=== PATIENT | male | born 1930 | race Caucasian/White ===

== ENCOUNTER 2019-11-13 13:50 | Observation (INO) ==
--- NOTE | 2019-11-13 14:57 | Pharmacy Consult Notes ---
[facility] VTE Monitoring - Patient Demographics Admission date: 11/13/19 Report Date: 11/13/19 Time: 14:57 Allergies/Adverse Reactions: Patient Allergies Penicillins Allergy (Verified 11/13/19 14:12) Unknown allergy reaction Height: 1.8 m Weight: 97.579 kg - VTE Risk Was VTE Risk Assessment Performed: Yes VTE Score: 6 VTE Risk Level: Moderate Risk - Prophylaxis VTE Prophylaxis Ordered?: Yes Types of VTE Prophylaxis: TEDS Knee High Location of Applied Device: Bilateral Lower Extremeties - VTE Diagnosis Confirmed Treatment or plan recommended: Continue Current Treatment
[2019-11-13 15:39] LABS: Basophils % 0.3 % (0.1-2.0); Eosinophils # 0.1 K/mm3 (0.0-0.4); Eosinophils % 0.7 % (0.1-12.0); Hematocrit 51.1 % (42.0-52.0); Hemoglobin 17.1 g/dL (14.1-18.0); Lymphocytes # 0.5 K/mm3 (0.7-4.5); Lymphocytes % 4.5 % (10-50); Mean Corpuscular HGB Conc 33.5 g/dL (31.8-35.4); Mean Corpuscular Volume 104.2 fl (80-94); Mean Platelet Volume 8.9 fl (7.4-10.4); Monocytes # 0.5 K/mm3 (0.1-1.0); Monocytes % 4.6 % (1.7-9.3); Neutrophils # 9.7 K/mm3 (1.8-7.8); Platelet Count 156 K/mm3 (142-424); Red Blood Count 4.91 M/mm3 (4.60-6.20); Red Cell Distribution Width 12.6 % (11.5-17.5); White Blood Count 10.8 K/mm3 (4.8-10.8)
[2019-11-13 15:55] LABS: Albumin Level 3.3 gm/dL (3.4-5.0); Calcium 8.3 mg/dL (8.5-10.1); Globulin 3.2 gm/dl (1.3-3.2); Total Protein,Serum 6.5 gm/dL (6.4-8.2)
--- NOTE | 2019-11-13 17:03 | History & Physical Report ---
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 Today he also endorsed subjective fevers at home. Patient had been seen in the office on November 07 and treated for COPD exacerbation with steroids and Omnicef. Patient has a penicillin allergy and developed increasing pain in the oropharynx which was believed to possibly be reaction to the Omnicef. Antibiotics were changed to doxycycline. He presented to the office today in mild respiratory distress with increased work of breathing and hypoxia. In the office O2 sat was 88% on room air while the patient was at rest. Pulse rate was between 100-110 bpm. Exam was abnormal with bibasilar rales and diffuse expiratory wheezes with poor air movement. Patient was admitted for treatment of his COPD exacerbation after failing outpatient treatment. [facility] History I have reviewed the patient's past medical history: Yes Medical History: Reports:: Chronic Obstructive Pulmonary Disease (COPD) Denies:: Cancer, Diabetes Mellitus Type 1, Diabetes Mellitus Type 2, MRSA *Have you ever received a pneumonia vaccine?: Yes *Have you received a flu vaccine this season?: Yes Comment:: Asbestosis Amputation: No Fractures: No - *Social History Educational Level: Attended Grade School Alcohol Intake: never *Occupational Status:: retired Housing: house Household Members: family *Travel in the last 8 weeks: None Family Hx:: Diabetes Review of Systems - Constitutional Reports fever(s), Denies anorexia, Denies body ache(s), Denies chills - *Cardiovascular Denies chest pain, Denies chest pain at rest, Denies chest pain with activity, Denies leg pain with activity, Denies excessive sweating - *Respiratory Reports chest congestion, Reports cough, Reports shortness of breath, Reports shortness of breath with activity, Reports wheezing - *Gastrointestinal Denies abdominal pain, Denies belching - *Genitourinary Denies difficulty urinating, Denies difficulty with ejaculations - *Musculoskeletal Denies abnormal walking, Denies joint pain Meds Allergies Allergy/AdvReac Type Severity Reaction Status Date / Time Penicillins Allergy Unknown Verified 11/13/19 14:12 allergy reaction Exam Vital signs and Labs for Last 24 Hours: Temp Pulse Resp BP Pulse Ox 99.5 F 82 26 H 148/64 H 94 L 11/13/19 14:07 11/13/19 14:07 11/13/19 14:54 11/13/19 14:07 11/13/19 14:54 Laboratory Results - last 24 hr 11/13/19 15:20: WBC 10.8, RBC 4.91, Hgb 17.1, Hct 51.1, MCV 104.2 H, MCH 34.9 H, MCHC 33.5, RDW 12.6, Plt Count 156, MPV 8.9, Neut % (Auto) 90.0 H, Lymph % (Auto) 4.5 L, Shelby % (Auto) 4.6, Eos % (Auto) 0.7, Baso % (Auto) 0.3, Neut # (Auto) 9.7 H, Lymph # (Auto) 0.5 L, Shelby # (Auto) 0.5, Eos # (Auto) 0.1, Baso # (Auto) 0.0 11/13/19 15:20: Sodium 134 L, Potassium 4.0, Chloride 100, Carbon Dioxide 25, Anion Gap 13.0, BUN 13, Creatinine 0.83, Estimated Creat Clear 72, Estimated GFR 88, Est GFR ( Amer) 106, Glucose 356 H, Calcium 8.3 L, Total Bilirubin 1.0, AST 8 L, ALT 28, Alkaline Phosphatase 84, Total Protein 6.5, Albumin 3.3 L, Globulin 3.2, Albumin/Globulin Ratio 1.0 L 11/13/19 15:20: B-Natriuretic Peptide 139 H 11/13/19 15:56: Lactate 0.9 I & O for Last 24 hours: Intake & Output 11/11/19 11/12/19 11/13/19 11/14/19 11:59 11:59 11:59 11:59 Weight 215 lb 2 oz Narrative: Patient appears more comfortable currently than in the office. Nasal cannula is in place. HEENT exam is grossly normal. Neck has no lymphadenopathy or carotid bruits. Lungs have poor air movement with diffuse expiratory wheezes and bibasilar crackles. Heart has a regular rate and rhythm. Abdomen is obese. Extremities are warm to the touch. Skin is without rashes. Neurologically the only deficit is vision loss. Assessment and Plan (1) COPD with exacerbation Current visit: Yes Status: Acute Category: Medical Code(s): J44.1 - Chronic obstructive pulmonary disease with (acute) exacerbation Patient requires hospitalization for management of symptoms. Continue duo nebs every 6 hours. PRN neb treatments will be ordered. Patient will start IV Levaquin as well as Solu-Medrol. Chest x-ray has been ordered. (2) Pneumonia Current visit: Yes Status: Suspected Category: Medical Code(s): J18.9 - Pneumonia, unspecified organism Chest x-ray to rule out pneumonia (3) Newly diagnosed diabetes Current visit: Yes Status: Acute Category: Medical Code(s): E11.9 - Type 2 diabetes mellitus without complications Patient will start medium intensity sliding scale (4) Blindness Current visit: Yes Status: Acute Category: Medical Code(s): H54.7 - Unspecified visual loss Up with assistance due to impaired vision in an unfamiliar environment (5) Pulmonary asbestosis Current visit: Yes Status: Acute Category: Medical Code(s): J61 - Pneumoconiosis due to asbestos and other mineral fibers
[2019-11-13 18:24] LABS: Anisocytosis 1+; Lymphocytes % 5 % (10-50); Macrocytosis 1+; Monocytes % 5 % (2-9); Neutrophils % 90 % (42-76); Total Cells Counted 100
--- NOTE | 2019-11-14 08:13 | Progress Note ---
Internal Medicine - PN: Subj *Date: 11/14/19 *Time: 08:11 Interval history: Patient feels significantly better this morning. Nursing has reported conversational dyspnea overnight but patient feels like this is his baseline. Exam Vital signs and Labs for Last 24 Hours: Temp Pulse Resp BP Pulse Ox 97.1 F L 50 L 22 144/69 H 93 L 11/14/19 04:00 11/14/19 06:00 11/14/19 04:00 11/14/19 04:00 11/14/19 06:00 Laboratory Results - last 24 hr 11/13/19 15:20: WBC 10.8, RBC 4.91, Hgb 17.1, Hct 51.1, MCV 104.2 H, MCH 34.9 H, MCHC 33.5, RDW 12.6, Plt Count 156, MPV 8.9, Neut % (Auto) 90.0 H, Lymph % (Auto) 4.5 L, Brule % (Auto) 4.6, Eos % (Auto) 0.7, Baso % (Auto) 0.3, Neut # (Auto) 9.7 H, Lymph # (Auto) 0.5 L, Brule # (Auto) 0.5, Eos # (Auto) 0.1, Baso # (Auto) 0.0, Total Counted 100, Neutrophils % (Manual) 90 H, Lymphocytes % (Manual) 5 L, Monocytes % (Manual) 5, Platelet Estimate Normal, Anisocytosis 1+, Macrocytosis 1+ 11/13/19 15:20: Sodium 134 L, Potassium 4.0, Chloride 100, Carbon Dioxide 25, Anion Gap 13.0, BUN 13, Creatinine 0.83, Estimated Creat Clear 72, Estimated GFR 88, Est GFR ( Amer) 106, Glucose 356 H, Calcium 8.3 L, Total Bilirubin 1.0, AST 8 L, ALT 28, Alkaline Phosphatase 84, Total Protein 6.5, Albumin 3.3 L, Globulin 3.2, Albumin/Globulin Ratio 1.0 L 11/13/19 15:20: Mycoplasma pneumon IgM Non-reactive 11/13/19 15:20: B-Natriuretic Peptide 139 H 11/13/19 15:56: Lactate 0.9 11/13/19 19:31: Influenza Type A Ag Negative, Influenza Type B Ag Negative 11/13/19 21:15: POC Glucose 351 H* 11/14/19 06:03: POC Glucose 256 H I & O for Last 24 hours: Intake & Output 11/11/19 11/12/19 11/13/19 11/14/19 11:59 11:59 11:59 11:59 Intake Total 50 / 50 Balance 50 / 50 Weight 205 lb 8 oz Microbiology Reports for the Last 24 Hours: Microbiology 11/13/19 21:30 Sputum - Expectorated Sputum Gram Stain - Final Narrative: Patient looks more comfortable and is sitting up on the side of the bed eating. He shows no signs of respiratory distress this morning. Lung exam remains distant with bibasilar crackles from his fibrotic disease. Wheezing is absent this morning heart has a regular rate and rhythm. Assessment and Plan (1) COPD with exacerbation Current visit: Yes Status: Acute Category: Medical Code(s): J44.1 - Chronic obstructive pulmonary disease with (acute) exacerbation (2) Pneumonia Current visit: Yes Status: Ruled-out Category: Medical Code(s): J18.9 - Pneumonia, unspecified organism (3) Newly diagnosed diabetes Current visit: Yes Status: Acute Category: Medical Code(s): E11.9 - Type 2 diabetes mellitus without complications (4) Blindness Current visit: Yes Status: Acute Category: Medical Code(s): H54.7 - Unspecified visual loss (5) Pulmonary asbestosis Current visit: Yes Status: Acute Category: Medical Code(s): 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 Continue duo nebs. Discontinue antibiotics. Monitor room air sats over the next 24 hours. Patient is possible discharge tomorrow
--- NOTE | 2019-11-15 08:25 | Discharge Summary ---
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 Today he also endorsed subjective fevers at home. Patient had been seen in the office on November 07 and treated for COPD exacerbation with steroids and Omnicef. Patient has a penicillin allergy and developed increasing pain in the oropharynx which was believed to possibly be reaction to the Omnicef. Antibiotics were changed to doxycycline. He presented to the office today in mild respiratory distress with increased work of breathing and hypoxia. In the office O2 sat was 88% on room air while the patient was at rest. Pulse rate was between 100-110 bpm. Exam was abnormal with bibasilar rales and diffuse expiratory wheezes with poor air movement. Patient was admitted for treatment of his COPD exacerbation after failing outpatient treatment. Hospital Course Hospital Course: Patient was admitted and placed on IV Solu-Medrol and IV Levaquin along with duo nebs 4 times a day. Chest x-ray was negative for pneumonia so Levaquin was discontinued on November 14. Patient had excellent response to steroids and aerosols. By the afternoon of November 14 he was weaned from oxygen and remained off supplemental oxygen overnight. On November 15 he was discharged home where he will continue a steroid taper along with aerosols 4 times a day. Patient was identified as having diabetes and will be started on a sulfonylurea. Patient will follow-up in 2 weeks Objective Vital signs: Temp Pulse Resp BP Pulse Ox 98.4 F 84 20 169/78 H 91 L 11/15/19 08:00 11/15/19 08:00 11/15/19 08:00 11/15/19 08:00 11/15/19 08:00 no acute distress - *Routine Respiratory Exam Comments: Distant but clear with basilar rales from fibrotic disease - *Routine Cardiovascular Exam Present: RRR, Normal S1, Normal S2 Results Labs on day of discharge: Labs from last 24 hours 11/15/19 11/14/19 11/14/19 05:51 21:06 17:06 POC Glucose 238 H 315 H* 422 H* 11/14/19 11:54 POC Glucose 350 H* Preliminary micro results at discharge 01/10/20 21:30 Sputum Culture - Preliminary Sputum - Expectorated Sputum DS: Diagnosis - Discharge Diagnosis (1) COPD with exacerbation Status: Acute (2) Pneumonia Status: Ruled-out (3) Newly diagnosed diabetes Status: Acute (4) Blindness Status: Acute (5) Pulmonary asbestosis Status: Acute Discharge Plan - Patient Discharge Instructions ACTIVITY: Continue current activity DIET: continue same diet - Follow up Plan Follow up with: Jose Bell MD [Primary Care Provider] - 2 weeks Disposition: Home, [facility] Medications: Home Medications Medication Instructions Recorded Confirmed Type Albuterol Sulfate [Albuterol HFA 2 puffs INHALATION Q4HP PRN 11/14/19 11/14/19 History Inhaler] Benzonatate 200 mg PO TIDP PRN 11/14/19 11/14/19 History Doxycycline Hyclate [Vibra-Tab 100 mg PO BID 11/14/19 11/14/19 History 100mg tablet] Fluticasone/Salmeterol [Advair 1 inh IH BID 11/14/19 11/14/19 History 250/50mcg Diskus] predniSONE [Deltasone 20mg 20 mg PO BID 11/14/19 11/14/19 History tablet] Glimepiride 1 mg PO DAILY #30 tab 11/15/19 Rx predniSONE [Deltasone 10mg tablet] 10 mg PO DIRECTED 30 Days #30 11/15/19 Rx tab Prescriptions/Medication Reconciliation: New predniSONE [Deltasone 10mg tablet] 10 mg PO DIRECTED 30 Days #30 tab Glimepiride 1 mg PO DAILY #30 tab Continued Benzonatate 200 mg PO TIDP PRN PRN Reason: Cough Fluticasone/Salmeterol [Advair 250/50mcg Diskus] 1 inh IH BID Albuterol Sulfate [Albuterol HFA Inhaler] 2 puffs INHALATION Q4HP PRN PRN Reason: SOA Discontinued predniSONE [Deltasone 20mg tablet] 20 mg PO BID Doxycycline Hyclate [Vibra-Tab 100mg tablet] 100 mg PO BID - Problem Reconciliation Problems Reviewed?: Yes
== END 2019-11-15 09:20 | disposition home or self-care (01) ==
LOC: 2ND
PROVIDERS: ADMIT Family Medicine; ATTEND Family Medicine
CPT/HCPCS: 36415; 71020; 71046; 80053; 82962; 83605; 83880; 85007; 85025; 86738; 87040; 87070; 87077; 87186; 87205; 87275; 87276; 94640; 94761; G0378; J1956

== ENCOUNTER 2019-11-18 09:42 | Inpatient (IN) ==
--- NOTE | 2019-11-18 10:12 | Emergency Department Note ---
ED Disposition Clinical Impression: Acute exacerbation of chronic obstructive airways disease, Sepsis, Type 2 diabetes mellitus with hyperglycemia, CHF (congestive heart failure), Elevated troponin I level, Qgnvt-Zbsitdpyr-Wxjrs (WPW) syndrome Disposition: Admitted As Inpatient Condition on Discharge: Serious Referrals: Jose Bell MD [Primary Care Provider] - Time of Disposition: 11:15 - Critical Care Critical Care Time: Yes Attestation: On 11/18/19, the high probability of a clinically significant, sudden or life threatening deterioration of the following system(s) required my full and direct attention, intervention and personal management. The time I documented below is in addition to time spent performing reported procedures but includes the following listed in this critical care notation. Total Critical Care Time: 30 Vital system(s) involved:: Metabolic Failure, Respiratory Failure My critical care processes included: Assessment & monitoring of V/S, Initial and Re-exams, Data Review/Interpretation, Coordinating Care, Medication Orders and management, Documentation Medical Decision Making - Medical Records Medical records reviewed: Yes: I reviewed the patient's medical records. - Chai Inquiry Pt receiving controlled substance: No Vital Signs: 11/18/19 09:50 11/18/19 10:18 11/18/19 10:23 Temperature 98.4 F 99.6 F Temperature Source Oral Oral Pulse Rate Pulse Rate [Left Radial] 105 H 89 Respiratory Rate 42 H 48 H Blood Pressure [Right Arm] 118/65 132/74 133/77 Blood Pressure Mean [Right Arm] 82 93 95 Blood Pressure Source [Right Arm] Automatic Cuff Blood Pressure Position [Right Arm] Sitting Sitting Sitting 02 Sat by Pulse Oximetry 87 L 93 L 94 L Oxygen Delivery Method Room Air Nasal Cannula Nasal Cannula Trilogy Oxygen Flow Rate (LPM) 4 4 11/18/19 10:35 11/18/19 10:52 Temperature Temperature Source Pulse Rate 92 H Pulse Rate [Left Radial] 88 91 H Respiratory Rate Blood Pressure [Right Arm] 126/70 123/78 Blood Pressure Mean [Right Arm] 88 93 Blood Pressure Source [Right Arm] Automatic Cuff Automatic Cuff Blood Pressure Position [Right Arm] Sitting Sitting 02 Sat by Pulse Oximetry 85 L 96 Oxygen Delivery Method Vapotherm Vapotherm Oxygen Flow Rate (LPM) 20 - Lab Data Lab results reviewed: Yes: I reviewed the patient's lab results. Lab Results 11/18/19 10:05: WBC 29.1 H*, RBC 4.79, Hgb 16.7, Hct 49.9, MCV 104.2 H, MCH 34.8 H, MCHC 33.4, RDW 12.4, Plt Count 167, MPV 9.0, Neut % (Auto) 92.4 H, Lymph % (Auto) 3.5 L, Garvin % (Auto) 3.8, Eos % (Auto) 0.3, Baso % (Auto) 0.1, Neut # (Auto) 26.9 H, Lymph # (Auto) 1.0, Garvin # (Auto) 1.1 H, Eos # (Auto) 0.1, Baso # (Auto) 0.0, Total Counted 100, Neutrophils % (Manual) 93 H, Lymphocytes % (Manual) 1 L, Monocytes % (Manual) 6, Platelet Estimate Normal, Macrocytosis 1+ 11/18/19 10:05: Sodium 131 L, Potassium 4.2, Chloride 97 L, Carbon Dioxide 25, Anion Gap 13.2, BUN 30 H, Creatinine 1.01, Estimated Creat Clear 73, Estimated GFR 70, Est GFR ( Amer) 85, Glucose 274 H, Calcium 8.3 L, Total Bilirubin 2.5 H, AST 22, ALT 31, Alkaline Phosphatase 91, Troponin I 0.90 H, Total Protein 6.2 L, Albumin 3.0 L, Globulin 3.2, Albumin/Globulin Ratio 0.9 L, TSH 0.97 11/18/19 10:05: Lactate 1.9 11/18/19 10:05: B-Natriuretic Peptide 473 H 11/18/19 10:06: Specimen Source Right brachial, O2 % Room air, ABG pH 7.45, ABG pCO2 36.5, ABG pO2 48.5 L, ABG HCO3 24.7, ABG Total CO2 25.9, ABG O2 Saturation 87 L*, ABG Base Excess 0.7, Isiah Test Acceptable Result diagrams: 11/18/19 10:05 11/18/19 10:05 Orders (Tests/Meds): ED MEDICATIONS Generic Name Dose Route Start Last Admin Trade Name Freq PRN Reason Stop Dose Admin Meropenem 1 gm/ Sodium 100 mls @ 100 mls/hr 11/18/19 10:15 11/18/19 10:28 Chloride IV 12/02/19 10:14 100 mls/hr Q8H STACY Administration Protocol Sodium Chloride 1,000 mls @ 999 mls/hr 11/18/19 10:30 11/18/19 10:28 Sod Chlor 0.9% 1000ml Bag IV 11/18/19 11:30 999 mls/hr .Q1H1M STACY Administration Discontinued Medications Generic Name Dose Route Start Last Admin Trade Name Freq PRN Reason Stop Dose Admin Albuterol/Ipratropium 3 ml 11/18/19 09:56 11/18/19 10:20 Duoneb 3ml [facility] 11/18/19 09:57 3 ml ONCE ONE Administration Albuterol/Ipratropium 3 ml 11/18/19 09:56 11/18/19 10:20 Duoneb 3ml [facility] 11/18/19 09:57 3 ml ONCE ONE Administration Albuterol/Ipratropium 3 ml 11/18/19 09:56 11/18/19 10:20 Duoneb 3ml [facility] 11/18/19 09:57 3 ml ONCE ONE Administration Methylprednisolone Sodium Succinate 125 mg 11/18/19 10:06 11/18/19 10:30 Solu-Medrol 125mg/2ml Vial IV 11/18/19 10:07 125 mg ONCE ONE Administration ORDERS Category Date Time Status Troponin I Q3H Lab 11/18/19 13:00 Ordered Troponin I Q3H Lab 11/18/19 16:00 Ordered Blood Culture Stat Micro 11/18/19 09:54 Received ABG [Arterial Blood Gas] Stat RT 11/18/19 10:43 Ordered - Radiology Data #1 Image(s): Chest Image Reviewed: Yes I reviewed the patient's radiology image Preliminary Findings: Normal/NAD Patient: Denver Rogel MR#: [id number] : 1930 Acct:[id number] Age/Sex: 89 / M ADM Date: 0 Loc: ER Attending Dr: Ordering Physician: Gregorio Decker MD Date of Service: 11/18/19 Procedure(s): XR chest portable Accession Number(s): [id number] cc: Frandy Vaughn MD; Jose Bell MD~ PROCEDURE: XR CHEST PORTABLE CLINICAL HISTORY: SOB COMPARISON: 11/13/2019 FINDINGS: There is continued cardiomegaly with an atherosclerotic aorta without Active CHF. 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 No superimposed acute infiltrate is apparent. No acute bony abnormalities. IMPRESSION: No acute findings. Dictated by: Frandy Vaughn 11/18/2019 10:36 Electronically signed by Frandy Vaughn in [place] 11/18/2019 10:36 - ECG Data Tracing #1 I reviewed this ECG and interpreted as documented below: Sinus tachycardia at a ventricular rate of 101 bpm. Right bundle branch block with left anterior fascicular block. ER interval normal at 150 ms. QRS duration prolonged at 138 ms. Corrected QT interval no longer at 195 ms. Left axis deviation at -70 degrees. ECG initial impression date: 11/18/19 ECG initial impression time: 09:52 Normal Sinus Rhythm: No Arrhythmias present: sinus tach, PVC's Conduction abnormalities present: LAFB, RBBB - Physician Consults Physician Consulted: Dr. Bell who is the patient's primary care provider. Time: 11:15 Reason -: Admission General Adult HPI - General Chief complaint: Shortness of Breath/Dyspnea Stated complaint: [id number] fall @ home Time Seen by Provider: 11/18/19 09:50 Mode of Arrival: Ambulatory Limitations: No Limitations Description of Symptoms (Recalled from ER Triage Doc. by RN): to ed per pvt car with c/o sob, cough and fall lastnight. pt d/[facility] from hosp.saturday with pneumonia. pt states getting out of bed lastnight lost balance and fell, bruising noted to rt rib area. - History of Present Illness HPI narrative: 89-year-old male with a history of COPD and recent history of hospitalization for pneumonia presents the emergency department complaining of a fall but found to be in respiratory distress upon initial assessment. Onset (ago): day(s) (3) Severity: severe Consistency: constant Relieving factors: none Exacerbating factors: none Associated symptoms: malaise, shortness of breath - Related Data Home Medications Medication Instructions Recorded Confirmed Albuterol Sulfate [Albuterol HFA 2 puffs INHALATION Q4HP PRN 11/14/19 11/18/19 Inhaler] Benzonatate 200 mg PO TIDP PRN 11/14/19 11/18/19 Fluticasone/Salmeterol [Advair 1 inh IH BID 01/11/20 01/15/20 250/50mcg Diskus] Glimepiride 1 mg PO DAILY 11/18/19 11/18/19 predniSONE [Deltasone 10mg tablet] 10 mg PO DIRECTED 11/18/19 11/18/19 Allergies Allergy/AdvReac Type Severity Reaction Status Date / Time cefdinir [From Omnicef] Allergy Verified 11/18/19 10:03 Penicillins Allergy Unknown Verified 11/13/19 14:12 allergy reaction [facility] History - Hepatitis A Screen Drug use history?: No High risk sexual behaviors?: No History of sexually transmitted infection?: No Currently employed?: No Childcare worker?: No Do you have indoor plumbing?: Yes Do you have electricity?: Yes Attestation statement:: This patient has been screened for Hepatitis A risk factors. I have reviewed the patient's past medical history: Yes Medical History: Reports:: Chronic Obstructive Pulmonary Disease (COPD) Denies:: Cancer, Diabetes Mellitus Type 1, Diabetes Mellitus Type 2, MRSA Other Medical History: Reports: Other (Rtlwu-Ixicxkeyu-Asxne) Comment: Asbestosis Amputation: No Fractures: No - Social History Alcohol Intake: never Occupational Status: retired Housing: house Household Members: family Family Hx:: Diabetes ROS Obtained: Yes Systems reviewed as appropriate & no additional complaints - Constitutional Constitutional: Reports fatigue, Reports malaise - Eyes Eyes: Reports system reviewed and no additional complaints, except as docu - ENT Ears, Nose, Mouth, and Throat: Reports system reviewed and no additional co mplaints, except as docu - Cardiovascular Cardiovascular: Reports dyspnea - Respiratory Respiratory: Yes cough, Yes dyspnea - Gastrointestinal Gastrointestingal: Reports: system reviewed and no additional complaints, except as docu - Genitourinary Male Genitourinary: Reports system reviewed and no additional complaints, except as docu - Musculoskeletal Musculoskeletal: Reports system reviewed and no additional complaints, except as docu - Integumentary/Breasts Skin/Breast: Reports system reviewed and no additional complaints, except as docu - Neurologic Neurologic: Reports system reviewed and no additional complaints, except as docu - Endocrine Endocrine: Reports system reviewed and no additional complaints, except as docu - Hematologic/Lymphatic Henatologic/Lymphatic: Reports system reviewed and no additional complaints, except as docu - Allergic/Immunologic Allergic/Immunologic: Reports system reviewed and no additional complaints, except as docu Physical Exam - General General appearance: alert, in distress - Head Head exam: atraumatic, normocephalic, normal inspection - Eye Eye exam: Present: normal appearance, PERRL, EOMI - ENT ENT exam: Present: normal exam, normal oropharynx, mucous membranes moist, n ormal external ear exam - Neck Neck exam: Present: normal inspection, full ROM, trachea midline. Absent: meningismus, lymphadenopathy - Chest Chest inspection: Present: normal inspection, symmetric chest wall rise. Absen t: tenderness - Respiratory Respiratory exam: Present: respiratory distress, wheezes, accessory muscle use, prolonged expiratory phase - Cardiovascular Cardiovascular exam: Present: regular rate, normal rhythm, tachycardia. Absent: JVD - Abdominal Exam Abdominal exam: Present: soft, normal bowel sounds. Absent: distention, tenderness, guarding - Extremities Exam Extremities exam: Present: normal inspection, full ROM, normal capillary refill. Absent: calf tenderness - Back Exam Back exam: Present: normal inspection. Absent: tenderness - Neurological Exam Neurological exam: Present: alert, oriented X3, CN II-XII intact, normal gait. Absent: motor sensory deficit - Psychiatric Psychiatric exam: Present: normal affect, normal mood - Skin Skin exam: Present: warm, dry, intact, normal color
[2019-11-18 10:14] LABS: ABG Base Excess 0.7 mmol/L (-2.4-2.3); ABG HCO3 24.7 mmhg (22.0-26.0); ABG Oxygen Saturation 87 % (90-100); ABG PCO2 36.5 mmhg (35.0-45.0); ABG PH 7.45 mmol/L (7.35-7.45); ABG TCO2 25.9 mmhg (23-27)
[2019-11-18 10:15] LABS: Oxygen ROOM AIR %
[2019-11-18 10:16] LABS: Allen's Test Acceptable
[2019-11-18 10:17] LABS: ABG PO2 48.5 mmhg (80-100)
[2019-11-18 10:27] LABS: Basophils % 0.1 % (0.1-2.0); Eosinophils # 0.1 K/mm3 (0.0-0.4); Eosinophils % 0.3 % (0.1-12.0); Hematocrit 49.9 % (42.0-52.0); Hemoglobin 16.7 g/dL (14.1-18.0); Lymphocytes % 3.5 % (10-50); Mean Corpuscular HGB Conc 33.4 g/dL (31.8-35.4); Mean Corpuscular Volume 104.2 fl (80-94); Monocytes # 1.1 K/mm3 (0.1-1.0); Monocytes % 3.8 % (1.7-9.3); Neutrophils # 26.9 K/mm3 (1.8-7.8); Neutrophils % 92.4 % (37.0-80.0); Platelet Count 167 K/mm3 (142-424); Red Blood Count 4.79 M/mm3 (4.60-6.20); Red Cell Distribution Width 12.4 % (11.5-17.5); White Blood Count 29.1 K/mm3 (4.8-10.8)
[2019-11-18 10:45] LABS: Lymphocytes % 1 % (10-50); Monocytes % 6 % (2-9); Neutrophils % 93 % (42-76); Total Cells Counted 100
[2019-11-18 10:46] LABS: Macrocytosis 1+
[2019-11-18 10:52] LABS: Albumin/Globulin Ratio 0.9 (1.1-1.8); Anion Gap 13.2 mEq/L (5-15); Bilirubin,Total 2.5 mg/dL (0.2-1.0); Calcium 8.3 mg/dL (8.5-10.1); Globulin 3.2 gm/dl (1.3-3.2); Thyroid Stimulating Hormone 0.97 uIU/ml (0.358-3.740); Total Protein,Serum 6.2 gm/dL (6.4-8.2)
--- NOTE | 2019-11-18 11:40 | Electrocardiograph Report ---
APPROVED REPORT Exam: Resting ECG HR:96 bpm ECG Measurements Heart Rate 96 AXES MT 144 P -27 QRSd 128 QRS -67 QT 414 T-10 QTc 523 <Conclusion> Sinus rhythm with frequent premature ventricular complexes Left axis deviation,LAHB Right bundle branch block Minimal voltage criteria for LVH, may be normal variant Abnormal ECG Electronically signed by : Michel Crawley, 11/18/2019 11:39:43
[2019-11-18 11:56] LABS: Activated Partial Thrombo Time 27.8 seconds (23.6-34.0); INR 1.02 (0.9-1.1); Prothrombin Time 10.6 seconds (9.4-11.8)
[2019-11-18 12:18] LABS: ABG Base Excess -2.2 mmol/L (-2.4-2.3); ABG HCO3 22.5 mmhg (22.0-26.0); ABG Oxygen Saturation 97 % (90-100); ABG PCO2 36.6 mmhg (35.0-45.0); ABG PH 7.41 mmol/L (7.35-7.45); ABG PO2 88.3 mmhg (80-100); ABG TCO2 23.6 mmhg (23-27)
[2019-11-18 12:19] LABS: Oxygen 50% %
--- NOTE | 2019-11-18 13:27 | Pharmacy Consult Notes ---
[facility] Pharmacy VTE Monitoring - Patient Demographics Admission date: 11/18/19 Report Date: 11/18/19 Time: 13:27 Allergies/Adverse Reactions: Patient Allergies cefdinir [From [employer]] Allergy (Verified 11/18/19 10:03) Penicillins Allergy (Verified 11/13/19 14:12) Unknown allergy reaction Height: 1.83 m Weight: 98.061 kg Patient Problems: Current Active Problems Acute exacerbation of chronic obstructive airways disease (Acute) Sepsis (Acute) Type 2 diabetes mellitus with hyperglycemia (Acute) CHF (congestive heart failure) (Acute) Elevated troponin I level (Acute) Njvse-Rpvuwbmkt-Fgtat (WPW) syndrome (Acute) - VTE Risk Labs: VTE Related Lab Results Hgb 16.7 g/dL (14.1-18.0) 11/18/19 10:05 Hct 49.9 % (42.0-52.0) 11/18/19 10:05 Plt Count 167 K/mm3 (142-424) 11/18/19 10:05 PT 10.6 seconds (9.4-11.8) 11/18/19 10:05 INR 1.02 (0.9-1.1) 11/18/19 10:05 APTT 27.8 seconds (23.6-34.0) 11/18/19 10:05 BUN 30 mg/dL (7-18) H 11/18/19 10:05 Creatinine 1.01 mg/dL (0.70-1.30) 11/18/19 10:05 Estimated Creat Clear 73 mL/min (50-200) 11/18/19 10:05 Was VTE Risk Assessment Performed: Yes VTE Score: 3 VTE Risk Level: Low Risk Clinical Trial Participant: No - Prophylaxis VTE Prophylaxis Ordered?: Yes Types of VTE Prophylaxis: TEDS Knee High
--- NOTE | 2019-11-18 15:41 | History & Physical Report ---
*Admission Date: 11/18/19 *Chief complaint: Weakness *History of present illness: 89-year-old male with recent 48-hour hospitalization at this facility for COPD exacerbation was found at home this morning by his daughter weak and ill. Both the patient and the daughter tell me that after patient was discharged from this facility on November 15 he did well on the , and day of the . Apparently at around 8:30 PM on November 17 the patient fell at home and struck the right side of his rib cage. He initially denies pain but later on during exam admits that it is uncomfortable on the right side. He laid on his floor at home for approximately 4 hours until around 12:30 AM this morning. It was at that point he was able to gather enough strength to crawl back to his bed. His daughter lives next door to him and when she went to check on him this morning he was not out of bed yet which is uncharacteristic of the patient. She found him in bed week and struggling to breathe. Patient was then brought to the emergency department. In the emergency department work-up revealed mild respiratory distress with leukocytosis, increased bilirubin and troponin along with hypoxia. Patient's hypoxia responded to application of the Vapotherm. Decision was made to admit the patient for treatment of his sepsis as well as COPD exacerbation with elevated troponin. At present patient is resting comfortably in bed. [facility] History I have reviewed the patient's past medical history: Yes Medical History: Reports:: Chronic Obstructive Pulmonary Disease (COPD), Diabetes Mellitus Type 2 Denies:: Cancer, Diabetes Mellitus Type 1, MRSA *Have you ever received a pneumonia vaccine?: Yes *Have you received a flu vaccine this season?: Yes Other Medical History: Reports: Arthritis, Cataracts, Other ([id number]-Kqsec) Comment:: Asbestosis Laterality Cases: Bilateral: Cataract Other Surgeries: Yes: Other Amputation: No Fractures: No - *Social History Educational Level: Completed Grade School Smoking Status: Former smoker Tobacco Type: cigarettes # Packs/Day (cigarettes): 2 #Yrs smoked (if former smoker): 19 Smoking End Date: 53 years ago Alcohol Intake: never *Occupational Status:: retired Housing: house Household Members: none *Travel in the last 8 weeks: None Family Hx:: Diabetes Review of Systems - Constitutional Reports weakness, Denies body ache(s), Denies chills, Denies fever(s), Denies headache(s) - *Cardiovascular Reports excessive sweating, Reports shortness of breath, Reports shortness of breath with activity, Denies chest pain, Denies chest pain at rest - *Respiratory Denies change in phlegm color - *Gastrointestinal Denies abdominal pain, Denies belching, Denies bloating - *Genitourinary Denies difficulty urinating - *Musculoskeletal Comments: Right-sided rib pain Meds Home Medications Medication Instructions Recorded Confirmed Type Albuterol Sulfate [Albuterol HFA 2 puffs INHALATION Q4HP PRN 11/14/19 11/18/19 History Inhaler] Fluticasone/Salmeterol [Advair 1 inh IH BID 11/14/19 11/18/19 History 250/50mcg Diskus] Glimepiride 1 mg PO DAILY 11/18/19 11/18/19 History predniSONE [Deltasone 10mg tablet] 10 mg PO DIRECTED 11/18/19 11/18/19 History Allergies Allergy/AdvReac Type Severity Reaction Status Date / Time [facility]efdinir [[facility]] Allergy Verified 11/18/19 10:03 Penicillins Allergy Unknown Verified 11/13/19 14:12 allergy reaction Exam Vital signs and Labs for Last 24 Hours: Temp Pulse Resp BP Pulse Ox 99 F 98 H 24 111/64 93 L 11/18/19 12:17 11/18/19 13:46 11/18/19 13:46 11/18/19 12:17 11/18/19 13:46 Laboratory Results - last 24 hr 11/18/19 10:05: WBC 29.1 H*, RBC 4.79, Hgb 16.7, Hct 49.9, MCV 104.2 H, MCH 34.8 H, MCHC 33.4, RDW 12.4, Plt Count 167, MPV 9.0, Neut % (Auto) 92.4 H, Lymph % (Auto) 3.5 L, [place] % (Auto) 3.8, Eos % (Auto) 0.3, Baso % (Auto) 0.1, Neut # (Auto) 26.9 H, Lymph # (Auto) 1.0, [place] # (Auto) 1.1 H, Eos # (Auto) 0.1, Baso # (Auto) 0.0, Total Counted 100, Neutrophils % (Manual) 93 H, Lymphocytes % (Manual) 1 L, Monocytes % (Manual) 6, Platelet Estimate Normal, Macrocytosis 1+ 11/18/19 10:05: Sodium 131 L, Potassium 4.2, Chloride 97 L, Carbon Dioxide 25, Anion Gap 13.2, BUN 30 H, Creatinine 1.01, Estimated Creat Clear 73, Estimated GFR 70, Est GFR ( Amer) 85, Glucose 274 H, Calcium 8.3 L, Total Bilirubin 2.5 H, AST 22, ALT 31, Alkaline Phosphatase 91, Troponin I 0.90 H, Total Protein 6.2 L, Albumin 3.0 L, Globulin 3.2, Albumin/Globulin Ratio 0.9 L, TSH 0.97 11/18/19 10:05: Lactate 1.9 11/18/19 10:05: B-Natriuretic Peptide 473 H 11/18/19 10:05: PT 10.6, INR 1.02, APTT 27.8 11/18/19 10:06: Specimen Source Right brachial, O2 % Room air, ABG pH 7.45, ABG pCO2 36.5, ABG pO2 48.5 L, ABG HCO3 24.7, ABG Total CO2 25.9, ABG O2 Saturation 87 L*, ABG Base Excess 0.7, Isiah Test Acceptable 11/18/19 12:05: Specimen Source R brachial, O2 % 50%, ABG pH 7.41, ABG pCO2 36.6, ABG pO2 88.3, ABG HCO3 22.5, ABG Total CO2 23.6, ABG O2 Saturation 97, ABG Base Excess -2.2 11/18/19 12:37: POC Glucose 262 H 11/18/19 14:40: Troponin I 0.55 H I & O for Last 24 hours: Intake & Output 11/16/19 11/17/19 11/18/19 11/19/19 11:59 11:59 11:59 11:59 Weight 216 lb 3 oz Narrative: Patient is laying in bed. He is sweating profusely. He has increased respiratory rate but not any increase respiratory effort. Pupils are reactive to light. Oropharynx is moist. Vapotherm is in place. Neck has no lymphadenopathy or carotid bruits. Lungs have expiratory wheezes and bibasilar crackles consistent with his chronic lung disease from asbestosis. Heart has a regular rate and rhythm. Abdomen is obese and soft and nontender. Musculoskeletal exam reveals abrasions and bruising of the elbows and proximal forearms as well as the knees. Patient has 2 bruises about the size of a quarter on the right rib cage. Extremities are warm to the touch and there is no pedal edema. Assessment and Plan (1) Pseudomonas respiratory infection Current visit: Yes Status: Acute Category: Medical Code(s): J98.8 - Other specified respiratory disorders; A49.8 - Other bacterial infections of unspecified site (2) Acute exacerbation of chronic obstructive airways disease Current visit: Yes Status: Acute Category: Medical Code(s): J44.1 - Chronic obstructive pulmonary disease with (acute) exacerbation (3) Elevated troponin I level Current visit: Yes Status: Acute Category: Medical Code(s): R79.89 - Other specified abnormal findings of blood chemistry (4) Sepsis Current visit: Yes Status: Acute Category: Medical Code(s): A41.9 - Sepsis, unspecified organism (5) Type 2 diabetes mellitus with hyperglycemia Current visit: Yes Status: Acute Category: Medical Code(s): E11.65 - Type 2 diabetes mellitus with hyperglycemia - Assessment and plan all Dx Assessment and Plan for all problems:: 1. Sepsis and Pseudomonas infection will be treated with meropenem which the Pseudomonas is sensitive to on culture from prior admission 2. Elevated troponin has trended down. Suspect this was demand ischemia from patient's hypoxia. Await echocardiogram result. If echocardiogram reveals LV dysfunction cardiology will be consulted 3. COPD exacerbation will be treated with steroids and aerosols 4. Repeat labs in a.m. 5. I did discuss CODE STATUS with patient and in the past he has opted for DO NOT RESUSCITATE. His wishes remain consistent with this. Appropriate paperwork will be completed.
--- NOTE | 2019-11-19 07:13 | Progress Note ---
Internal Medicine - PN: Subj *Date: 11/19/19 *Time: 07:12 Interval history: Patient has no complaints this morning. He has maintained O2 sats with the Vapotherm. Patient has been back and forth to the bathroom with some dyspnea on exertion. No fevers overnight. Exam Vital signs and Labs for Last 24 Hours: Temp Pulse Resp BP Pulse Ox 97.6 F 77 20 120/70 94 L 11/19/19 04:00 11/19/19 06:49 11/19/19 04:00 11/19/19 04:00 11/19/19 06:49 Laboratory Results - last 24 hr 11/18/19 10:05: WBC 29.1 H*, RBC 4.79, Hgb 16.7, Hct 49.9, MCV 104.2 H, MCH 34.8 H, MCHC 33.4, RDW 12.4, Plt Count 167, MPV 9.0, Neut % (Auto) 92.4 H, Lymph % (Auto) 3.5 L, [place] % (Auto) 3.8, Eos % (Auto) 0.3, Baso % (Auto) 0.1, Neut # (Auto) 26.9 H, Lymph # (Auto) 1.0, [place] # (Auto) 1.1 H, Eos # (Auto) 0.1, Baso # (Auto) 0.0, Total Counted 100, Neutrophils % (Manual) 93 H, Lymphocytes % (Manual) 1 L, Monocytes % (Manual) 6, Platelet Estimate Normal, Macrocytosis 1+ 11/18/19 10:05: Sodium 131 L, Potassium 4.2, Chloride 97 L, Carbon Dioxide 25, Anion Gap 13.2, BUN 30 H, Creatinine 1.01, Estimated Creat Clear 73, Estimated GFR 70, Est GFR ( Amer) 85, Glucose 274 H, Calcium 8.3 L, Total Bilirubin 2.5 H, AST 22, ALT 31, Alkaline Phosphatase 91, Troponin I 0.90 H, Total Protein 6.2 L, Albumin 3.0 L, Globulin 3.2, Albumin/Globulin Ratio 0.9 L, TSH 0.97 11/18/19 10:05: Lactate 1.9 11/18/19 10:05: B-Natriuretic Peptide 473 H 11/18/19 10:05: PT 10.6, INR 1.02, APTT 27.8 11/18/19 10:06: Specimen Source Right brachial, O2 % Room air, ABG pH 7.45, ABG pCO2 36.5, ABG pO2 48.5 L, ABG HCO3 24.7, ABG Total CO2 25.9, ABG O2 Saturation 87 L*, ABG Base Excess 0.7, Isiah Test Acceptable 11/18/19 12:05: Specimen Source R brachial, O2 % 50%, ABG pH 7.41, ABG pCO2 36.6, ABG pO2 88.3, ABG HCO3 22.5, ABG Total CO2 23.6, ABG O2 Saturation 97, ABG Base Excess -2.2 11/18/19 12:37: POC Glucose 262 H 11/18/19 14:40: Troponin I 0.55 H 11/18/19 16:17: POC Glucose 227 H 11/18/19 20:10: POC Glucose 256 H 11/19/19 06:04: POC Glucose 209 H I & O for Last 24 hours: Intake & Output 11/16/19 11/17/19 11/18/19 11/19/19 11:59 11:59 11:59 11:59 Intake Total 490 / 490 Output Total 300 / 300 Balance 190 / 190 Weight 216 lb 3 oz 212 lb 2 oz Microbiology Reports for the Last 24 Hours: Microbiology 11/18/19 16:13 Sputum - Expectorated Sputum Gram Stain - Final Narrative: Patient looks comfortable this morning with no increased work of breathing. Vapotherm is in place but patient primarily breathes through his mouth. Lungs have anterior rhonchi but no wheezing this morning. Heart has a regular rate and rhythm. Echocardiogram on preliminary reading has been interpreted as EF of greater than 50%. Assessment and Plan (1) Pseudomonas respiratory infection Current visit: Yes Status: Acute Category: Medical Code(s): J98.8 - Other specified respiratory disorders; A49.8 - Other bacterial infections of uns pecified site (2) Acute exacerbation of chronic obstructive airways disease Current visit: Yes Status: Acute Category: Medical Code(s): J44.1 - Chronic obstructive pulmonary disease with (acute) exacerbation (3) Elevated troponin I level Current visit: Yes Status: Acute Category: Medical Code(s): R79.89 - Other specified abnormal findings of blood chemistry (4) Sepsis Current visit: Yes Status: Acute Category: Medical Code(s): A41.9 - Sepsis, unspecified organism (5) Type 2 diabetes mellitus with hyperglycemia Current visit: Yes Status: Acute Category: Medical Code(s): E11.65 - Type 2 diabetes mellitus with hyperglycemia - Assessment and plan all Dx Assessment and Plan for all problems:: 1. Continue IV meropenem for 1 week due to Pseudomonas infection 2. Wean Vapotherm
[2019-11-19 07:29] LABS: Basophils % 0.1 % (0.1-2.0); Eosinophils # 0.1 K/mm3 (0.0-0.4); Eosinophils % 0.3 % (0.1-12.0); Hematocrit 52.2 % (42.0-52.0); Hemoglobin 17.3 g/dL (14.1-18.0); Lymphocytes # 0.8 K/mm3 (0.7-4.5); Lymphocytes % 3.3 % (10-50); Mean Corpuscular HGB Conc 33.2 g/dL (31.8-35.4); Mean Corpuscular Volume 104.4 fl (80-94); Monocytes # 0.4 K/mm3 (0.1-1.0); Monocytes % 1.6 % (1.7-9.3); Neutrophils # 21.4 K/mm3 (1.8-7.8); Neutrophils % 94.8 % (37.0-80.0); Platelet Count 125 K/mm3 (142-424); Red Cell Distribution Width 12.4 % (11.5-17.5); White Blood Count 22.6 K/mm3 (4.8-10.8)
[2019-11-19 08:33] LABS: Albumin Level 2.7 gm/dL (3.4-5.0); Albumin/Globulin Ratio 0.8 (1.1-1.8); Anion Gap 12.6 mEq/L (5-15); Bilirubin,Total 1.3 mg/dL (0.2-1.0); Calcium 8.5 mg/dL (8.5-10.1); Chol/HDL Ratio 2.3 (1-3.5); Globulin 3.4 gm/dl (1.3-3.2); Total Protein,Serum 6.1 gm/dL (6.4-8.2)
--- NOTE | 2019-11-19 08:47 | Progress Note ---
Internal Medicine - PN: Subj *Date: 11/19/19 *Time: 08:47 Exam Vital signs and Labs for Last 24 Hours: Temp Pulse Resp BP Pulse Ox 97.8 F 66 22 139/78 93 L 11/19/19 07:52 11/19/19 07:52 11/19/19 07:52 11/19/19 07:52 11/19/19 07:52 Laboratory Results - last 24 hr 11/18/19 10:05: WBC 29.1 H*, RBC 4.79, Hgb 16.7, Hct 49.9, MCV 104.2 H, MCH 34.8 H, MCHC 33.4, RDW 12.4, Plt Count 167, MPV 9.0, Neut % (Auto) 92.4 H, Lymph % (Auto) 3.5 L, [place] % (Auto) 3.8, Eos % (Auto) 0.3, Baso % (Auto) 0.1, Neut # (Auto) 26.9 H, Lymph # (Auto) 1.0, [place] # (Auto) 1.1 H, Eos # (Auto) 0.1, Baso # (Auto) 0.0, Total Counted 100, Neutrophils % (Manual) 93 H, Lymphocytes % (Manual) 1 L, Monocytes % (Manual) 6, Platelet Estimate Normal, Macrocytosis 1+ 11/18/19 10:05: Sodium 131 L, Potassium 4.2, Chloride 97 L, Carbon Dioxide 25, Anion Gap 13.2, BUN 30 H, Creatinine 1.01, Estimated Creat Clear 73, Estimated GFR 70, Est GFR ( Amer) 85, Glucose 274 H, Calcium 8.3 L, Total Bilirubin 2.5 H, AST 22, ALT 31, Alkaline Phosphatase 91, Troponin I 0.90 H, Total Protein 6.2 L, Albumin 3.0 L, Globulin 3.2, Albumin/Globulin Ratio 0.9 L, TSH 0.97 11/18/19 10:05: Lactate 1.9 11/18/19 10:05: B-Natriuretic Peptide 473 H 11/18/19 10:05: PT 10.6, INR 1.02, APTT 27.8 11/18/19 10:06: Specimen Source Right brachial, O2 % Room air, ABG pH 7.45, ABG pCO2 36.5, ABG pO2 48.5 L, ABG HCO3 24.7, ABG Total CO2 25.9, ABG O2 Saturation 87 L*, ABG Base Excess 0.7, Isiah Test Acceptable 11/18/19 12:05: Specimen Source R brachial, O2 % 50%, ABG pH 7.41, ABG pCO2 36.6, ABG pO2 88.3, ABG HCO3 22.5, ABG Total CO2 23.6, ABG O2 Saturation 97, ABG Base Excess -2.2 11/18/19 12:37: POC Glucose 262 H 11/18/19 14:40: Troponin I 0.55 H 11/18/19 16:17: POC Glucose 227 H 11/18/19 20:10: POC Glucose 256 H 11/19/19 06:04: POC Glucose 209 H 11/19/19 07:20: WBC 22.6 H*, RBC 5.00, Hgb 17.3, Hct 52.2 H, MCV 104.4 H, MCH 34.6 H, MCHC 33.2, RDW 12.4, Plt Count 125 L D, MPV 9.0, Neut % (Auto) 94.8 H, Lymph % (Auto) 3.3 L, [place] % (Auto) 1.6 L, Eos % (Auto) 0.3, Baso % (Auto) 0.1, Neut # (Auto) 21.4 H, Lymph # (Auto) 0.8, [place] # (Auto) 0.4, Eos # (Auto) 0.1, Baso # (Auto) 0.0 11/19/19 08:13: Sodium 137, Potassium 4.6, Chloride 101, Carbon Dioxide 28, Anion Gap 12.6, BUN 27 H, Creatinine 1.04, Estimated Creat Clear 68, Estimated GFR 68, Est GFR ( Amer) 82, Glucose 292 H, Calcium 8.5, Total Bilirubin 1.3 H, AST 17, ALT 25, Alkaline Phosphatase 86, Total Protein 6.1 L, Albumin 2.7 L, Globulin 3.4 H, Albumin/Globulin Ratio 0.8 L, Triglycerides 58, Cholesterol 169, LDL Cholesterol 84, VLDL Cholesterol 12, HDL Cholesterol 73 H, Cholesterol/HDL Ratio 2.3 I & O for Last 24 hours: Intake & Output 11/16/19 11/17/19 11/18/1916/20 23:59 23:59 23:59 23:59 Intake Total 490 / 490 240 / 240 Output Total 300 / 300 Balance 490 / 490 -60 / -60 Weight 98.061 kg 96.218 kg Microbiology Reports for the Last 24 Hours: Microbiology 11/18/19 16:13 Sputum - Expectorated Sputum Gram Stain - Final Assessment and Plan (1) Pseudomonas respiratory infection Current visit: Yes Status: Acute Category: Medical Code(s): J98.8 - Other specified respiratory disorders; A49.8 - Other bacterial infections of unspecified site (2) Acute exacerbation of chronic obstructive airways disease Current visit: Yes Status: Acute Category: Medical Code(s): J44.1 - Chronic obstructive pulmonary disease with (acute) exacerbation (3) Elevated troponin I level Current visit: Yes Status: Acute Category: Medical Code(s): R79.89 - Other specified abnormal findings of blood chemistry (4) Sepsis Current visit: Yes Status: Acute Category: Medical Code(s): A41.9 - Sepsis, unspecified organism (5) Type 2 diabetes mellitus with hyperglycemia Current visit: Yes Status: Acute Category: Medical Code(s): E11.65 - Type 2 diabetes mellitus with hyperglycemia The patient's infection will respond to the chosen ABx?: Yes Is the patient receiving the right drug, dose, and route?: Yes Could a more targeted ABx be ordered?: No 7
[2019-11-19 09:02] LABS: Lymphocytes % 4 % (10-50); Monocytes % 3 % (2-9); Neutrophils % 93 % (42-76); Total Cells Counted 100
[2019-11-19 09:03] LABS: Anisocytosis 1+; Macrocytosis 1+
--- NOTE | 2019-11-19 13:05 | Cardiology Report ---
APPROVED REPORT EXAM: Comprehensive 2D, Doppler, and color-flow Echocardiogram House Cleaner: Zakia Quan RT(R) Ht: 6 ft 0 in Wt: 227lbs BSA: 2.25 BP: 133/77 mmHg Indications: COPD, diabetes, SOB, CHF, WPW syndrome 2D Dimensions LVOT 2.16 cm (M/F) 1.5-2.5 M-Mode Dimensions RVDd 2.68 cm (0.9-2.6)LVDd 4.36 cm (3.5-5.7) LVDs 3.04 cm (3.5-5.7)IVSd 1.09 cm (0.6-1.1) PWd 1.54 cm (0.6-1.1)EF (Teich) 57.80% FS 30.30% EDV (Teich) 85.80 mL ESV (Teich) 36.20 mL Left Ventricle Left atrium is mildly enlarged, left ventricle is normal size, mild concentric left ventricular hypertrophy, visually estimated ejection fraction 55% with no regional wall motion abnormality, diastolic parameters are inconclusive. Right Ventricle Right atrium and right ventricle mildly enlarged with normal contractility. Aortic Valve Aortic valve is thickened and calcified leaflet chordae display good mobility, there is no aortic stenosis, there is mild aortic insufficiency. Mitral Valve Mitral valve leaflets are minimally thickened, there is mild mitral regurgitation. Tricuspid Valve Tricuspid valve is grossly normal, there is mild tricuspid regurgitation, tricuspid regurgitation jet velocity is inadequate for calculation of the right ventricular systolic pressure. Pulmonic Valve Pulmonic valve is poorly visualized. Great Vessels Aortic root is normal size. Pericardium No significant pericardial effusion noted. Conclusion 1. Mildly biatrial enlargement, normal left ventricular size, mild concentric left ventricular hypertrophy, visually estimated ejection fraction 55% with no regional wall motion abnormality, diastolic parameters are inconclusive. 2. Mildly enlarged right ventricle with normal contractility. 3. Mild aortic, mild mitral and tricuspid regurgitation. 4. No significant pericardial effusion noted. Electronically signed by : Harley Obregon, 11/19/2019 13:04:43
--- NOTE | 2019-11-20 07:10 | Progress Note ---
Internal Medicine - PN: Subj *Date: 11/20/19 *Time: 07:08 Interval history: Patient has no complaints this morning but states he does not feel much better. His night did not go well. Nursing staff reports patient slept intermittently. He has been weaned down from Vapotherm since yesterday but attempts to wean further overnight were not successful due to desats in the 80s. Exam Vital signs and Labs for Last 24 Hours: Temp Pulse Resp BP Pulse Ox 97.6 F 70 25 H 156/84 H 95 11/20/19 04:00 11/20/19 06:17 11/20/19 04:00 11/20/19 04:00 11/20/19 06:17 Laboratory Results - last 24 hr 11/19/19 07:20: WBC 22.6 H*, RBC 5.00, Hgb 17.3, Hct 52.2 H, MCV 104.4 H, MCH 34.6 H, MCHC 33.2, RDW 12.4, Plt Count 125 L D, MPV 9.0, Neut % (Auto) 94.8 H, Lymph % (Auto) 3.3 L, [place] % (Auto) 1.6 L, Eos % (Auto) 0.3, Baso % (Auto) 0.1, Neut # (Auto) 21.4 H, Lymph # (Auto) 0.8, [place] # (Auto) 0.4, Eos # (Auto) 0.1, Baso # (Auto) 0.0, Total Counted 100, Neutrophils % (Manual) 93 H, Lymphocytes % (Manual) 4 L, Monocytes % (Manual) 3, Platelet Estimate Normal, RBC Morphology Not Reportable, Anisocytosis 1+, Macrocytosis 1+ 11/19/19 08:13: Sodium 137, Potassium 4.6, Chloride 101, Carbon Dioxide 28, Anion Gap 12.6, BUN 27 H, Creatinine 1.04, Estimated Creat Clear 68, Estimated GFR 68, Est GFR ( Amer) 82, Glucose 292 H, Calcium 8.5, Total Bilirubin 1.3 H, AST 17, ALT 25, Alkaline Phosphatase 86, Total Protein 6.1 L, Albumin 2.7 L, Globulin 3.4 H, Albumin/Globulin Ratio 0.8 L, Triglycerides 58, Cholesterol 169, LDL Cholesterol 84, VLDL Cholesterol 12, HDL Cholesterol 73 H, Cholesterol/HDL Ratio 2.3 11/19/19 11:17: POC Glucose 325 H* 11/19/19 16:53: POC Glucose 316 H* 11/19/19 20:23: POC Glucose 331 H* 11/20/19 05:40: POC Glucose 222 H I & O for Last 24 hours: Intake & Output 11/17/19 11/18/19 11/19/19 11/20/19 11:59 11:59 11:59 11:59 Intake Total 730 / 730 820 / 820 Output Total 300 / 300 500 / 500 Balance 430 / 430 320 / 320 Weight 216 lb 3 oz 212 lb 2 oz 215 lb 8 oz Microbiology Reports for the Last 24 Hours: Microbiology 11/18/19 16:13 Sputum - Expectorated Sputum Gram Stain - Final 11/18/19 16:13 Sputum - Expectorated Sputum Sputum Culture - Preliminary Narrative: Patient appears comfortable in bed. When I entered the room he was sleeping and while Vapotherm was in place patient is mouth breathing for the most part. He awakens easily. Lung exam reveals diffuse rhonchi both anteriorly and posteriorly in both lungs. Heart has a regular rate and rhythm. Abdomen is soft. Assessment and Plan (1) Pseudomonas respiratory infection Current visit: Yes Status: Acute Category: Medical Code(s): J98.8 - Other specified respiratory disorders; A49.8 - Other bacterial infections of unspecified site (2) Acute exacerbation of chronic obstructive airways disease Current visit: Yes Status: Acute Category: Medical Code(s): J44.1 - Chronic obstructive pulmonary disease with (acute) exacerbation (3) Elevated troponin I level Current visit: Yes Status: Acute Category: Medical Code(s): R79.89 - Other specified abnormal findings of blood chemistry (4) Sepsis Current visit: Yes Status: Acute Category: Medical Code(s): A41.9 - Sepsis, unspecified organism (5) Type 2 diabetes mellitus with hyperglycemia Current visit: Yes Status: Acute Category: Medical Code(s): E11.65 - Type 2 diabetes mellitus with hyperglycemia - Assessment and plan all Dx Assessment and Plan for all problems:: 1. Continue meropenem for patient's Pseudomonas 2. Decrease steroids to Solu-Medrol 40 mg IV q. 8 3. Add incentive spirometry 4. PT and OT consults. 5. Plan remains to keep patient on IV antibiotics for 1 week to treat his Pseudomonas respiratory infection 7
[2019-11-20 07:35] LABS: Basophils % 0.1 % (0.1-2.0); Hematocrit 48.9 % (42.0-52.0); Hemoglobin 15.8 g/dL (14.1-18.0); Lymphocytes # 0.5 K/mm3 (0.7-4.5); Lymphocytes % 2.8 % (10-50); Mean Corpuscular HGB Conc 32.2 g/dL (31.8-35.4); Mean Corpuscular Volume 106.7 fl (80-94); Mean Platelet Volume 8.8 fl (7.4-10.4); Monocytes # 0.3 K/mm3 (0.1-1.0); Monocytes % 1.7 % (1.7-9.3); Neutrophils # 17.6 K/mm3 (1.8-7.8); Neutrophils % 95.4 % (37.0-80.0); Platelet Count 163 K/mm3 (142-424); Red Blood Count 4.58 M/mm3 (4.60-6.20); Red Cell Distribution Width 12.5 % (11.5-17.5); White Blood Count 18.5 K/mm3 (4.8-10.8)
[2019-11-20 08:26] LABS: Lymphocytes % 1 % (10-50); Monocytes % 2 % (2-9); Neutrophils % 97 % (42-76); Total Cells Counted 100
[2019-11-20 08:27] LABS: Anisocytosis 2+; Macrocytosis 2+
[2019-11-21 06:18] LABS: Basophils % 0.1 % (0.1-2.0); Eosinophils % 0.1 % (0.1-12.0); Hematocrit 48.3 % (42.0-52.0); Hemoglobin 15.2 g/dL (14.1-18.0); Lymphocytes # 0.4 K/mm3 (0.7-4.5); Lymphocytes % 3.2 % (10-50); Mean Corpuscular HGB Conc 31.5 g/dL (31.8-35.4); Mean Corpuscular Volume 108.1 fl (80-94); Mean Platelet Volume 8.8 fl (7.4-10.4); Monocytes # 0.3 K/mm3 (0.1-1.0); Monocytes % 2.9 % (1.7-9.3); Neutrophils # 10.8 K/mm3 (1.8-7.8); Neutrophils % 93.7 % (37.0-80.0); Platelet Count 148 K/mm3 (142-424); Red Blood Count 4.47 M/mm3 (4.60-6.20); Red Cell Distribution Width 12.6 % (11.5-17.5); White Blood Count 11.6 K/mm3 (4.8-10.8)
[2019-11-21 07:01] LABS: Anisocytosis 1+; Lymphocytes % 1 % (10-50); Macrocytosis 2+; Monocytes % 1 % (2-9); Neutrophils % 98 % (42-76); Total Cells Counted 100
--- NOTE | 2019-11-21 07:51 | Progress Note ---
Internal Medicine - PN: Subj *Date: 11/21/19 *Time: 07:49 Interval history: Patient believes he is getting better. He reports less dyspnea both at rest and with exertion. He continues to have a cough but it is now nonproductive. Nursing staff reports patient is mildly dyspneic with exertion back and forth to the bathroom. He has been weaned to supplemental oxygen via the nasal cannula at 3 L/min. PT and OT eval's yesterday suggested short-term placement for rehabilitation. Patient would prefer to go home after this hospitalization. Exam Vital signs and Labs for Last 24 Hours: Temp Pulse Resp BP Pulse Ox 97.8 F 62 21 115/73 92 L 11/21/19 07:45 11/21/19 07:45 11/21/19 07:45 11/21/19 07:45 11/21/19 07:45 Laboratory Results - last 24 hr 11/20/19 06:38: Total Counted 100, Neutrophils % (Manual) 97 H, Lymphocytes % (Manual) 1 L, Monocytes % (Manual) 2, Platelet Estimate Normal, Anisocytosis 2+, Macrocytosis 2+ 11/20/19 11:08: POC Glucose 329 H* 11/20/19 16:04: POC Glucose 353 H* 11/20/19 20:55: POC Glucose 269 H 11/21/19 06:03: WBC 11.6 H D, RBC 4.47 L, Hgb 15.2, Hct 48.3, MCV 108.1 H, MCH 34.1 H, MCHC 31.5 L, RDW 12.6, Plt Count 148, MPV 8.8, Neut % (Auto) 93.7 H, Lymph % (Auto) 3.2 L, [place] % (Auto) 2.9, Eos % (Auto) 0.1, Baso % (Auto) 0.1, Neut # (Auto) 10.8 H, Lymph # (Auto) 0.4 L, [place] # (Auto) 0.3, Eos # (Auto) 0.0, Baso # (Auto) 0.0, Total Counted 100, Neutrophils % (Manual) 98 H, Lymphocytes % (Manual) 1 L, Monocytes % (Manual) 1 L, Platelet Estimate Normal, Anisocytosis 1+, Macrocytosis 2+ 11/21/19 06:03: POC Glucose 191 H I & O for Last 24 hours: Intake & Output 11/18/19 11/19/19 11/20/19 11/21/19 11:59 11:59 11:59 11:59 Intake Total 730 / 730 1180 / 1180 1400 / 1400 Output Total 300 / 300 1100 / 1100 1300 / 1300 Balance 430 / 430 80 / 80 100 / 100 Weight 216 lb 3 oz 212 lb 2 oz 215 lb 8 oz 219 lb 0.009 oz Microbiology Reports for the Last 24 Hours: Microbiology 11/18/19 16:13 Sputum - Expectorated Sputum Gram Stain - Final 11/18/19 16:13 Sputum - Expectorated Sputum Sputum Culture - Final Pseudomonas aeruginosa 11/18/19 09:54 Blood Blood Culture - Preliminary NO GROWTH AFTER 48 HOURS 11/18/19 09:54 Blood Blood Culture - Preliminary NO GROWTH AFTER 48 HOURS Narrative: Patient is awake and alert sitting up in the chair. He appears comfortable and nasal cannula is in place. Oropharynx is moist and clear. Lungs are distant with occasional rhonchi but no wheezes. Heart has a regular rate and rhythm. Assessment and Plan (1) Pseudomonas respiratory infection Current visit: Yes Status: Acute Category: Medical Code(s): J98.8 - Other specified respiratory disorders; A49.8 - Other bacterial infections of unspecified site (2) Acute exacerbation of chronic obstructive airways disease Current visit: Yes Status: Acute Category: Medical Code(s): J44.1 - Chronic obstructive pulmonary disease with (acute) exacerbation (3) Elevated troponin I level Current visit: Yes Status: Acute Category: Medical Code(s): R79.89 - Other specified abnormal findings of blood chemistry (4) Sepsis Current visit: Yes Status: Acute Category: Medical Code(s): A41.9 - Sepsis, unspecified organism (5) Type 2 diabetes mellitus with hyperglycemia Current visit: Yes Status: Acute Category: Medical Code(s): E11.65 - Type 2 diabetes mellitus with hyperglycemia - Assessment and plan all Dx Assessment and Plan for all problems:: 1. Continue IV antibiotics until Saturday morning 2. Wean steroids 3. Monitor glucose as we wean steroids. 7
--- NOTE | 2019-11-21 08:36 | Progress Note ---
Internal Medicine - PN: Subj *Date: 11/21/19 *Time: 08:35 Exam Vital signs and Labs for Last 24 Hours: Temp Pulse Resp BP Pulse Ox 97.8 F 62 21 115/73 92 L 11/21/19 07:45 11/21/19 07:45 11/21/19 07:45 11/21/19 07:45 11/21/19 07:45 Laboratory Results - last 24 hr 11/20/19 11:08: POC Glucose 329 H* 11/20/19 16:04: POC Glucose 353 H* 11/20/19 20:55: POC Glucose 269 H 11/21/19 06:03: WBC 11.6 H D, RBC 4.47 L, Hgb 15.2, Hct 48.3, MCV 108.1 H, MCH 34.1 H, MCHC 31.5 L, RDW 12.6, Plt Count 148, MPV 8.8, Neut % (Auto) 93.7 H, Lymph % (Auto) 3.2 L, [place] % (Auto) 2.9, Eos % (Auto) 0.1, Baso % (Auto) 0.1, Neut # (Auto) 10.8 H, Lymph # (Auto) 0.4 L, [place] # (Auto) 0.3, Eos # (Auto) 0.0, Baso # (Auto) 0.0, Total Counted 100, Neutrophils % (Manual) 98 H, Lymphocytes % (Manual) 1 L, Monocytes % (Manual) 1 L, Platelet Estimate Normal, Anisocytosis 1+, Macrocytosis 2+ 11/21/19 06:03: POC Glucose 191 H I & O for Last 24 hours: Intake & Output 11/18/19 11/19/19 11/20/19 11/21/19 23:59 23:59 23:59 23:59 Intake Total 490 / 490 960 / 960 1380 / 1390 480 / 480 Output Total 800 / 800 1000 / 1000 900 / 900 Balance 490 / 490 160 / 160 380 / 390 -420 / -420 Weight 98.061 kg 96.218 kg 98 kg 99.337 kg Microbiology Reports for the Last 24 Hours: Microbiology 11/18/19 16:13 Sputum - Expectorated Sputum Gram Stain - Final 11/18/19 16:13 Sputum - Expectorated Sputum Sputum Culture - Final Pseudomonas aeruginosa 11/18/19 09:54 Blood Blood Culture - Preliminary NO GROWTH AFTER 48 HOURS 11/18/19 09:54 Blood Blood Culture - Preliminary NO GROWTH AFTER 48 HOURS Assessment and Plan (1) Pseudomonas respiratory infection Current visit: Yes Status: Acute Category: Medical Code(s): J98.8 - Other specified respiratory disorders; A49.8 - Other bacterial infections of unspecified site (2) Acute exacerbation of chronic obstructive airways disease Current visit: Yes Status: Acute Category: Medical Code(s): J44.1 - Chronic obstructive pulmonary disease with (acute) exacerbation (3) Elevated troponin I level Current visit: Yes Status: Acute Category: Medical Code(s): R79.89 - Other specified abnormal findings of blood chemistry (4) Sepsis Current visit: Yes Status: Acute Category: Medical Code(s): A41.9 - Seps is, unspecified organism (5) Type 2 diabetes mellitus with hyperglycemia Current visit: Yes Status: Acute Category: Medical Code(s): E11.65 - Type 2 diabetes mellitus with hyperglycemia The patient's infection will respond to the chosen ABx?: Yes Is the patient receiving the right drug, dose, and route?: Yes Could a more targeted ABx be ordered?: No 7
[2019-11-22 06:58] LABS: Basophils % 0.1 % (0.1-2.0); Eosinophils # 0.1 K/mm3 (0.0-0.4); Eosinophils % 0.7 % (0.1-12.0); Hematocrit 46.5 % (42.0-52.0); Hemoglobin 15.2 g/dL (14.1-18.0); Lymphocytes # 1.2 K/mm3 (0.7-4.5); Lymphocytes % 14.9 % (10-50); Mean Corpuscular HGB Conc 32.6 g/dL (31.8-35.4); Mean Corpuscular Volume 106.4 fl (80-94); Mean Platelet Volume 8.5 fl (7.4-10.4); Monocytes # 0.4 K/mm3 (0.1-1.0); Monocytes % 5.1 % (1.7-9.3); Neutrophils # 6.2 K/mm3 (1.8-7.8); Neutrophils % 79.1 % (37.0-80.0); Platelet Count 133 K/mm3 (142-424); Red Blood Count 4.37 M/mm3 (4.60-6.20); Red Cell Distribution Width 12.6 % (11.5-17.5); White Blood Count 7.8 K/mm3 (4.8-10.8)
--- NOTE | 2019-11-22 07:57 | Progress Note ---
Internal Medicine - PN: Subj *Date: 11/22/19 *Time: 07:55 Interval history: Patient has no complaints this morning. He ambulated in his room multiple times throughout the day yesterday. He did have some mild shortness of breath. Staff is been able to wean his supplemental oxygen from 3 L/min to 2 L/min. His cough remains dry. Exam Vital signs and Labs for Last 24 Hours: Temp Pulse Resp BP Pulse Ox 97.9 F 68 22 103/74 L 94 L 11/22/19 07:30 11/22/19 07:30 11/22/19 07:30 11/22/19 07:30 11/22/19 07:30 Laboratory Results - last 24 hr 11/21/19 16:25: POC Glucose 241 H 11/21/19 20:40: POC Glucose 251 H 11/22/19 06:36: POC Glucose 110 11/22/19 06:37: WBC 7.8 D, RBC 4.37 L, Hgb 15.2, Hct 46.5, MCV 106.4 H, MCH 34.7 H, MCHC 32.6, RDW 12.6, Plt Count 133 L, MPV 8.5, Neut % (Auto) 79.1, Lymph % (Auto) 14.9, [place] % (Auto) 5.1, Eos % (Auto) 0.7, Baso % (Auto) 0.1, Neut # (A uto) 6.2, Lymph # (Auto) 1.2, [place] # (Auto) 0.4, Eos # (Auto) 0.1, Baso # (Auto) 0.0 I & O for Last 24 hours: Intake & Output 11/19/19 11/20/19 11/21/19 11/22/19 11:59 11:59 11:59 11:59 Intake Total 730 / 730 1180 / 1180 1400 / 1400 840 / 840 Output Total 300 / 300 1100 / 1100 1600 / 1600 550 / 550 Balance 430 / 430 80 / 80 -200 / -200 290 / 290 Weight 212 lb 2 oz 215 lb 8 oz 219 lb 0.009 oz 221 lb 5 oz Microbiology Reports for the Last 24 Hours: Microbiology 11/18/19 16:13 Sputum - Expectorated Sputum Gram Stain - Final 11/18/19 16:13 Sputum - Expectorated Sputum Sputum Culture - Final Pseudomonas aeruginosa Narrative: He looks well this morning. Lungs have expiratory wheeze in the left upper lobe. Rhonchi anteriorly and posteriorly in both lungs. 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 Assessment and Plan (1) Pseudomonas respiratory infection Current visit: Yes Status: Acute Category: Medical Code(s): J98.8 - Other specified respiratory disorders; A49.8 - Other bacterial infections of unspecified site (2) Acute exacerbation of chronic obstructive airways disease Current visit: Yes Status: Acute Category: Medical Code(s): J44.1 - Chr onic obstructive pulmonary disease with (acute) exacerbation (3) Elevated troponin I level Current visit: Yes Status: Acute Category: Medical Code(s): R79.89 - Other specified abnormal findings of blood chemistry (4) Sepsis Current visit: Yes Status: Acute Category: Medical Code(s): A41.9 - Sepsis, unspecified organism (5) Type 2 diabetes mellitus with hyperglycemia Current visit: Yes Status: Acute Category: Medical Code(s): E11.65 - Type 2 diabetes mellitus with hyperglycemia - Assessment and plan all Dx Assessment and Plan for all problems:: No change in plan of care at this time. I did wean steroids yesterday and patient's fasting glucose this morning was 110. I will discontinue his long- acting insulin. Continue coverage with sliding scale. Plan to reinitiate oral hypoglycemics tomorrow 7
--- NOTE | 2019-11-23 07:10 | Progress Note ---
Internal Medicine - PN: Subj *Date: 11/23/19 *Time: 07:08 Interval history: Patient states he is feeling a little bit better this morning. Nursing staff reports patient was rather grumpy yesterday evening as he would prefer to go home. Patient is aware of the plan for IV antibiotics through Saturday. His cough remains nonproductive. He is ambulating adequately in his room although nursing still reports patient seems unsteady on his feet at time. He continues to have shortness of breath with exertion. Exam Vital signs and Labs for Last 24 Hours: Temp Pulse Resp BP Pulse Ox 98.0 F 61 20 158/83 H 91 L 11/23/19 04:00 11/23/19 06:04 11/23/19 04:00 11/23/19 04:00 11/23/19 06:04 Laboratory Results - last 24 hr 11/22/19 11:06: POC Glucose 202 H 11/22/19 16:07: POC Glucose 242 H 11/22/19 20:42: POC Glucose 299 H 11/23/19 06:10: POC Glucose 122 H I & O for Last 24 hours: Intake & Output 11/20/19 11/21/19 11/22/19 11/23/19 11:59 11:59 11:59 11:59 Intake Total 1180 / 1180 1400 / 1400 1080 / 1080 1220 / 1220 Output Total 1100 / 1100 1600 / 1600 550 / 550 1500 / 1500 Balance 80 / 80 -200 / -200 530 / 530 -280 / -280 Weight 215 lb 8 oz 219 lb 0.009 oz 221 lb 5 oz 224 lb 8 oz Narrative: Patient is awake and alert sitting up in the chair this morning. Oropharynx is moist. Lungs are distant with faint rhonchi but no wheezes this morning. Heart has a regular rate and rhythm. Extremities are without edema Assessment and Plan (1) Pseudomonas respiratory infection Current visit: Yes Status: Acute Category: Medical Code(s): J98.8 - Other specified respiratory disorders; A49.8 - Other bacterial infections of unspecified site (2) Acute exacerbation of chronic obstructive airways disease Current visit: Yes Status: Acute Category: Medical Code(s): J44.1 - Chronic obstructive pulmonary disease with (acute) exacerbation (3) Elevated troponin I level Current visit: Yes Status: Acute Category: Medical Code(s): R79.89 - Other specified abnormal findings of blood chemistry (4) Sepsis Current visit: Yes Status: Acute Category: Medical Code(s): A41.9 - Sepsis, unspecified organism (5) Type 2 diabetes mellitus with hyperglycemia Current visit: Yes Status: Acute Category: Medical Code(s): E11.65 - Type 2 diabetes mellitus with hyperglycemia - Assessment and plan all Dx Assessment and Plan for all problems:: 1. Continue IV meropenem for his Pseudomonas respiratory infection 2. Restart patient's glimepiride 1 mg daily 3. Repeat patient's EKG from admission 7
--- NOTE | 2019-11-24 07:06 | Progress Note ---
Internal Medicine - PN: Subj *Date: 11/24/19 *Time: 07:08 Interval history: Patient has no complaints this morning. He feels like he is ambulating well but is frustrated by the use of the bed alarm. Staff have witnessed patient coming back and forth to the bathroom several times and have asked him to ring out for assistance due to some mild unsteadiness on his feet. He denies shortness of breath this morning Exam Vital signs and Labs for Last 24 Hours: Temp Pulse Resp BP Pulse Ox 98.6 F 57 L 23 138/70 94 L 11/24/19 04:00 11/24/19 05:56 11/24/19 04:00 11/24/19 04:00 11/24/19 06:43 Laboratory Results - last 24 hr 11/21/19 11:23: POC Glucose 268 H 11/23/19 11:11: POC Glucose 251 H 11/23/19 16:28: POC Glucose 246 H 11/23/19 20:08: POC Glucose 161 H 11/24/19 05:49: POC Glucose 132 H I & O for Last 24 hours: Intake & Output 11/21/19 11/22/19 11/23/19 11/24/19 11:59 11:59 11:59 11:59 Intake Total 1400 / 1400 1080 / 1080 1580 / 1580 600 / 600 Output Total 1600 / 1600 550 / 550 1500 / 1500 500 / 500 Balance -200 / -200 530 / 530 80 / 80 100 / 100 Weight 219 lb 0.009 oz 221 lb 5 oz 224 lb 8 oz 219 lb 6.994 oz Microbiology Reports for the Last 24 Hours: Microbiology 11/18/19 09:54 Blood Blood Culture - Final NO GROWTH AFTER 5 DAYS 11/18/19 09:54 Blood Blood Culture - Final NO GROWTH AFTER 5 DAYS Narrative: Patient is in no distress. Lungs have only faint rhonchi posteriorly and are otherwise clear. Heart has a regular rate and rhythm. Patient has trace edema of the right leg and 1+ edema of the left lower leg. Repeat EKG yesterday showed a right bundle branch block as well as a left anterior fascicular block. He has persistent T wave inversions in the inferior leads. Assessment and Plan (1) Pseudomonas respiratory infection Current visit: Yes Status: Acute Category: Medical Code(s): J98.8 - Other specified respiratory disorders; A49.8 - Other bacterial infections of unspecified site (2) Acute exacerbation of chronic obstructive airways disease Current visit: Yes Status: Acute Category: Medical Code(s): J44.1 - Chronic obstructive pulmonary disease with (acute) exacerbation (3) Elevated troponin I level Current visit: Yes Status: Acute Category: Medical Code(s): R79.89 - Other specified abnormal findings of blood chemistry (4) Sepsis Current visit: Yes Status: Acute Category: Medical Code(s): A41.9 - Sepsis, unspecified organism (5) Type 2 diabetes mellitus with hyperglycemia Current visit: Yes Status: Acute Category: Medical Code(s): E11.65 - Type 2 diabetes mellitus with hyperglycemia - Assessment and plan all Dx Assessment and Plan for all problems:: Patient has an additional 24 hours of IV antibiotics to complete his 7-day course of meropenem to treat Pseudomonas respiratory infection. Encourage patient to ambulate today. Patient will be given a single oral dose of Lasix 40 mg due to his pedal edema. 7
--- NOTE | 2019-11-24 08:58 | Electrocardiograph Report ---
APPROVED REPORT Exam: Resting ECG HR:73 bpm ECG Measurements Heart Rate 73 AXES RI 160 P 3 QRSd 142 QRS -67 QT 426 T-34 QTc 469 <Conclusion> Normal sinus rhythm with sinus arrhythmia Right bundle branch block Left anterior fascicular block Bifascicular block Minimal voltage criteria for LVH, may be normal variant T wave abnormality, consider inferior ischemia Abnormal ECG Electronically signed by : Michel Crawley, 11/24/2019 08:58:14
--- NOTE | 2019-11-25 07:21 | Discharge Summary ---
General - General Admission date:: 11/18/19 Discharge date: 11/25/19 HPI HPI: 89-year-old male with recent 48-hour hospitalization at this facility for COPD exacerbation was found at home this morning by his daughter weak and ill. Both the patient and the daughter tell me that after patient was discharged from this facility on November 15 he did well on the , and day of the . Apparently at around 8:30 PM on November 17 the patient fell at home and struck the right side of his rib cage. He initially denies pain but later on during exam admits that it is uncomfortable on the right side. He laid on his floor at home for approximately 4 hours until around 12:30 AM this morning. It was at that point he was able to gather enough strength to crawl back to his bed. His daughter lives next door to him and when she went to check on him this morning he was not out of bed yet which is uncharacteristic of the patient. She found him in bed week and struggling to breathe. Patient was then brought to the emergency department. In the emergency department work-up revealed mild respiratory distress with leukocytosis, increased bilirubin and troponin along with hypoxia. Patient's hypoxia responded to application of the Vapotherm. Decision was made to admit the patient for treatment of his sepsis as well as COPD exacerbation with elevated troponin. At present patient is resting comfortably in bed. Hospital Course Hospital Course: Patient was admitted and placed on meropenem to cover his Pseudomonas bronchitis. Patient had had a recent hospitalization and the day prior to this admission his sputum culture had grown pseudomonas aeruginosa. Patient met sepsis criteria on admission. Sputum culture performed this hospitalization also grew pseudomonas aeruginosa. Patient was admitted and placed on antibiotics along with intravenous Solu-Medrol and duo nebs. Due to QT prolongation on EKG patient was felt to be a poor candidate for therapy with Levaquin. Therefore it was decided he would need IV antibiotics for 1 week to treat his pseudomonas aeruginosa respiratory infection. Patient showed initial signs of improvement over the first 48 hours and from that point on showed gradual improvement each day in his respiratory function as well as his ambulatory ability. 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 However his limitations did not stop him from trying to be as independent as possible. Patient was constantly reminded to ring out for assistance. As hospitalization went on steroids were weaned. He will not be prescribed any steroids at discharge. He he will however require supplemental oxygen to discharge with room air sat the morning of discharge 87% at rest Patient is a newly diagnosed diabetic and because he required steroids glucose remained quite high. He was covered with high intensity sliding scale and long- acting insulin of Lantus 15 units nightly. As steroids were weaned and sugars decreased the long-acting insulin was discontinued and he was transitioned to his oral glimepiride 1 mg which she will continue at discharge. Patient will follow-up in my office on November 27 at 10 AM. Objective Vital signs: Temp Pulse Resp BP Pulse Ox 97.9 F 64 22 154/83 H 87 L 11/25/19 04:00 11/25/19 05:49 11/25/19 04:00 11/25/19 04:00 11/25/19 06:51 no acute distress - *Routine Respiratory Exam Comments: Bibasilar rales from his asbestosis. Fair aeration of the lungs - *Routine Cardiovascular Exam Present: RRR - *Routine Abdominal Exam Present: soft, normoactive bowel sounds. Absent: tenderness Results Labs on day of discharge: Labs from last 24 hours 11/25/19 11/24/19 11/24/19 06:17 20:24 16:56 POC Glucose 172 H 168 H 197 H 11/24/19 11:46 POC Glucose 288 H DS: Diagnosis - Discharge Diagnosis (1) Pseudomonas respiratory infection Status: Acute (2) Acute exacerbation of chronic obstructive airways disease Status: Acute (3) Elevated troponin I level Status: Acute (4) Sepsis Status: Acute (5) Type 2 diabetes mellitus with hyperglycemia Status: Acute Discharge Plan - Patient Discharge Instructions ACTIVITY: Continue current activity DIET: continue same diet Patient Instructions: DI for Heart Failure, DI for Chronic Obstructive Pulmonary Disease, DI for Qawfr-Bezbcqxat-Rudiz Syndrome, DI for Sepsis -- Adult, DI for Heart Failure Exacerbations - Follow up Plan Follow up with: Jose Bell MD [Primary Care Provider] - 11/27/19 10:00 am Disposition: Home, Self-Custodial Medications: Home Medications Medication Instructions Recorded Confirmed Type Albuterol Sulfate [Albuterol HFA 2 puffs INHALATION Q4HP PRN 11/14/19 11/18/19 History Inhaler] Fluticasone/Salmeterol [Advair 1 inh IH BID 11/14/19 11/18/19 History 250/50mcg Diskus] Glimepiride 1 mg PO DAILY 11/18/19 11/18/19 History predniSONE [Deltasone 10mg tablet] 10 mg PO DIRECTED 11/18/19 11/18/19 History Prescriptions/Medication Reconciliation: Continued Fluticasone/Salmeterol [Advair 250/50mcg Diskus] 1 inh IH BID Albuterol Sulfate [Albuterol HFA Inhaler] 2 puffs INHALATION Q4HP PRN PRN Reason: SOA Glimepiride 1 mg PO DAILY Discontinued predniSONE [Deltasone 10mg tablet] 10 mg PO DIRECTED - Problem Reconciliation Problems Reviewed?: Yes
== END 2019-11-25 11:10 | disposition home or self-care (01) | DRG 190 ==
LOC: ER 09:42 → 2ND 11:42
PROVIDERS: ADMIT Family Medicine; ATTEND Family Medicine
CPT/HCPCS: 36415; 71010; 71045; 80053; 80061; 82803; 82962; 83605; 83880; 84443; 84484; 85007; 85025; 85610; 85730; 87040; 87070; 87077; 87186; 87205; 93005; 93306; 94640; 94761; 96365; 96367; 96375; 97110; 97116; 97162; 97166; 97535; 99285; G0378; J2185